=== PATIENT | female | born 1950 | race Caucasian/White ===

== ENCOUNTER → 2017-05-14 | Day surgery (SDC) | payer MEDICARE ==
[~2017-05-14] MED LIST: ASPIRIN325 MG PO; FENTANYL CITRATE/PF 100MCG/2 ML INJ ONE; HYDROCHLOROTHIA25 MG PO; MICARDIS HCT 41 EACH PO; MICARDIS40 MG PO; MIDAZOLAM HCL 2 MG/2 ML VIAL ONE; OR PHACO EYE KIT ONE; PREOP PHACO EYE KIT ONE
== END | disposition home or self-care (01) ==
LOC: OR 09:43
PROVIDERS: ATTEND Ophthalmology
DX: H25.11 Age-related nuclear cataract, right eye (principal); I10 Essential (primary) hypertension; F17.210 Nicotine dependence, cigarettes, uncomplicated; Z79.82 Long term (current) use of aspirin
CPT/HCPCS: 66984; J2250; V2632

== ENCOUNTER → 2018-09-12 | Outpatient (CLI) | payer MEDICARE ==
[~2018-09-12] MED LIST changes: -FENTANYL CITRATE/PF 100MCG/2 ML INJ ONE; -MIDAZOLAM HCL 2 MG/2 ML VIAL ONE; -OR PHACO EYE KIT ONE; -PREOP PHACO EYE KIT ONE
--- NOTE | 2018-09-12 14:06 | Diagnostic Imaging Report ---
Exam: Lumbar spine MRI without IV contrast History: Low back pain, radiculopathy symptoms, leg pain and numbness. Comparison studies: None Technique: Sagittal and axial T2 , sagittal T1 and IR, axial spin density oblique, coronal T2. Intravenous contrast: None Findings: Image quality: The axial T2 and sagittal T2 FS sequences are somewhat limited by motion artifacts. Number of lumbar vertebral bodies: 5. Alignment: S-shaped thoracal lumbar curvature with lumbar curvature convex to the right and compensatory thoracolumbar curvature convex to the left. There is mild right lateral translation of L4 on L5. Straight lumbar curvature may be positional. Soft tissues: No T2 hyperintense inflammatory changes. Paraspinal muscles: No signal abnormalities. Well-preserved. No atrophic changes Lower thoracic cord: Normal in signal and morphology. The tip of the conus is at T12-L1 . Cauda equina: No masses. No arachnoiditis. Vertebrae: No compression fractures, infection or neoplasm. Degenerative changes: Incidental multilevel anterior marginal disc osteophyte complexes. L1-L2: Mildly degenerated disc. Asymmetric right disc osteophyte complex with mild right foraminal stenosis. No significant canal or left foraminal stenosis L2-L3: Mildly degenerated disc. Disc bulge and facet arthrosis result in mild bilateral foraminal stenosis. No significant canal stenosis. L3-L4: Mildly degenerated disc. Asymmetric right disc bulge, thickened ligamentum flavum and moderate bilateral facet arthrosis with mild canal stenosis and moderate bilateral foraminal stenosis. L4-L5: Moderately degenerated disc along the concavity lumbar curvature with associate degenerative endplate changes and Schmorl's node and edema along the superior L5 endplate. Asymmetric left disc osteophyte complex, thickened ligamentum flavum and moderate facet arthrosis with severe bilateral frontal stenosis on moderate canal stenosis. There is narrowing of the subarticular recesses with potential impingement on the bilateral L5 nerve roots. L5-S1: Mildly degenerated disc. Asymmetric right disc bulge and right greater than left facet arthrosis with moderate right foraminal stenosis, mild canal stenosis and narrowing of the subarticular recesses. No significant left foraminal stenosis. Additional findings: T2 hyperintense 1.7 cm left superior renal pole cyst and bilateral inferior renal pole subcentimeter cysts. IMPRESSION: 1. S-shaped thoracolumbar scoliosis with multilevel facet arthrosis and multilevel disc degeneration. Moderately degenerated L4-L5 disc with reactive endplate changes along the concavity of lumbar curvature. 2. Moderate degenerative canal, subarticular stenosis and severe right and moderate left foraminal stenosis at L4-L5 with impingement on the right L4 nerve root and potential bilateral L5 nerve root impingement. 3. Moderate foraminal stenosis bilaterally at L3-L4 and on the right L5-S1. Signed by: Dr. Delio Barclay M.D. on 09/12/2018 2:03 PM
== END ==
LOC: MRI 07:00
PROVIDERS: ATTEND Family Medicine
DX: M51.26 Other intervertebral disc displacement, lumbar region (principal); M51.36 Other intervertebral disc degeneration, lumbar region; M54.17 Radiculopathy, lumbosacral region
CPT/HCPCS: 72148